=== PATIENT | female | born 1980 | race Caucasian/White ===

== ENCOUNTER 2020-11-05 10:01 | Emergency (ER) | payer OTHER ==
[~2020-11-05 10:01] MED LIST: ENDOCET 5-3251 EACH PO; LAMICTAL200 MG PO; LEVAQUIN500 MG PO; PROBIOTIC OF CHOICE; XANAX0.5 MG PO; ZOFRAN4 MG PO
[2020-11-05] MEDS ORDERED: ETODOLAC500 MG PO (11:10)
[2020-11-05] MEDS ORDERED: NORCO 5-325 TA1 EACH PO (11:10)
== END 2020-11-05 11:20 | disposition home or self-care (01) ==
LOC: FER 10:01
DX: M67.471 Ganglion, right ankle and foot (principal); F17.200 Nicotine dependence, unspecified, uncomplicated; Z88.6 Allergy status to analgesic agent; Z88.8 Allergy status to other drugs, medicaments and biological substances
CPT/HCPCS: 73630

== ENCOUNTER 2021-06-10 15:50 | Emergency (ER) | payer OTHER ==
[~2021-06-10] VITALS: Ht 165.1 cm; Wt 117.9 kg
[~2021-06-10 15:50] MED LIST changes: +ETODOLAC500 MG PO; +NORCO 5-325 TA1 EACH PO
[2021-06-10] MEDS ORDERED: ABILIFY10 MG PO (17:11)
[2021-06-10] MEDS ORDERED: METOPROLOL SUCC25 MG PO (17:12)
[2021-06-10] MEDS ORDERED: OMEPRAZOLE20 M1 PO (17:13)
[2021-06-10 17:44] LABS: BASOPHIL 0.4 % (0-2); EOSINOPHIL 1.7 % (0-5); HGB 13.9 g/dl (12.5-16.0); LYMPHOCYTE 24.1 % (15-48); MCH 31.4 pg (25.0-31.0); MCHC 33.9 g/dL (32.0-36.0); MCV 92.6 fL (78.0-100.0); MONOCYTE 6.1 % (0-12); MPV 11.4 fL (6.0-9.5); NEUTROPHIL 67.3 % (41-80); NRBC 0; PLT 243 K/uL (150-400); RBC 4.43 M/uL (4.20-5.40); RDW 12.2 % (11.5-14.0); WBC 7.2 K/uL (4.0-10.5)
[2021-06-10 17:45] LABS: BILIRUBIN NEGATIVE (NEGATIVE); BLOOD TRACE-INTACT Ery/uL (NEGATIVE); CLARITY CLEAR (CLEAR); COLOR YELLOW (YELLOW); GLUCOSE (U) NORMAL (NORMAL); LEUKOCYTES NEGATIVE Leu/uL (NEGATIVE); NITRITE NEGATIVE (NEGATIVE); PROTEIN NEGATIVE (NEGATIVE); UROBILINOGEN 0.2 mg/dL (0.2-1.0); pH 6.5 (5.0-9.0)
[2021-06-10 17:57] LABS: BACTERIA TRACE; URINARY RBC RARE
[2021-06-10 19:00] LABS: ALBUMIN 3.7 g/dL (3.4-5.0); BILIRUBIN - TOTAL 0.3 mg/dL (0.2-1.0); BUN/CREAT RATIO (CALC) 11.3 RATIO; CREATININE 0.62 mg/dL (0.51-0.95); GLOBULIN (CALCULATION) 3.4 g/dL; POTASSIUM 3.8 mmol/L (3.5-5.1); TOTAL PROTEIN 7.1 g/dL (6.4-8.2)
== END 2021-06-10 21:08 | disposition home or self-care (01) ==
LOC: FER 15:50
PROVIDERS: Emergency Medicine
DX: R10.84 Generalized abdominal pain (principal); R11.0 Nausea; R30.0 Dysuria; F17.210 Nicotine dependence, cigarettes, uncomplicated; Z88.6 Allergy status to analgesic agent; Z88.2 Allergy status to sulfonamides
CPT/HCPCS: 36415; 80053; 81001; 85025; J1885; J2405; J7030; Q9967

== ENCOUNTER 2021-07-16 21:00 | Emergency (ER) | payer OTHER ==
[~2021-07-16 21:00] MED LIST changes: +ABILIFY10 MG PO; +METOPROLOL SUCC25 MG PO; +OMEPRAZOLE20 M1 PO
[2021-07-16 22:34] LABS: BASOPHIL 0.3 % (0-2); EOSINOPHIL 0.4 % (0-5); HCT 39.5 % (37.0-47.0); HGB 13.4 g/dl (12.5-16.0); LYMPHOCYTE 21.5 % (15-48); MCH 32.1 pg (25.0-31.0); MCHC 33.9 g/dL (32.0-36.0); MCV 94.5 fL (78.0-100.0); MONOCYTE 5.8 % (0-12); NEUTROPHIL 71.7 % (41-80); NRBC 0; PLT 230 K/uL (150-400); RBC 4.18 M/uL (4.20-5.40); RDW 12.3 % (11.5-14.0); WBC 7.6 K/uL (4.0-10.5)
[2021-07-16 22:34] LABS: BILIRUBIN NEGATIVE (NEGATIVE); BLOOD NEGATIVE Ery/uL (NEGATIVE); CLARITY CLEAR (CLEAR); COLOR YELLOW (YELLOW); GLUCOSE (U) NORMAL (NORMAL); LEUKOCYTES NEGATIVE Leu/uL (NEGATIVE); NITRITE NEGATIVE (NEGATIVE); PROTEIN NEGATIVE (NEGATIVE); SPECIFIC GRAVITY <=1.005 (1.001-1.030); UROBILINOGEN 0.2 mg/dL (0.2-1.0); pH 6.5 (5.0-9.0)
[2021-07-16 22:49] LABS: CREATININE 0.57 mg/dL (0.51-0.95); POTASSIUM 3.8 mmol/L (3.5-5.1)
[2021-07-16] MEDS ORDERED: FIORICET1 EACH PO (22:57)
== END 2021-07-16 22:55 | disposition home or self-care (01) ==
LOC: FER 21:00
PROVIDERS: Nurse Practitioner Family
DX: G43.909 Migraine, unspecified, not intractable, without status migrainosus (principal); Z88.2 Allergy status to sulfonamides; Z88.6 Allergy status to analgesic agent
CPT/HCPCS: 36415; 70450; 80048; 81003; 85025; J1100; J1200; J1885; J2405; J7030

== ENCOUNTER 2021-09-09 17:07 | Emergency (ER) | payer OTHER ==
[~2021-09-09 17:07] MED LIST changes: +FIORICET1 EACH PO
[2021-09-09] MEDS ORDERED: MEDROL 4MG DOSEP4 MG PO (20:54)
[2021-09-09] MEDS ORDERED: VENTOLIN HFA IN18 GM INH (20:54)
== END 2021-09-09 21:00 | disposition home or self-care (01) ==
LOC: FER 17:07
DX: U07.1 COVID-19 (principal); I10 Essential (primary) hypertension; Z88.1 Allergy status to other antibiotic agents; Z88.6 Allergy status to analgesic agent; Z79.899 Other long term (current) drug therapy
CPT/HCPCS: 99283; U0002

== ENCOUNTER 2021-10-22 18:56 | Emergency (ER) | payer OTHER ==
[~2021-10-22 18:56] MED LIST changes: +MEDROL 4MG DOSEP4 MG PO; +VENTOLIN HFA IN18 GM INH
== END 2021-10-22 22:14 | disposition home or self-care (01) ==
LOC: FER 18:56
DX: M67.471 Ganglion, right ankle and foot (principal); Z88.6 Allergy status to analgesic agent; Z88.8 Allergy status to other drugs, medicaments and biological substances
CPT/HCPCS: 73620

== ENCOUNTER 2021-12-16 22:09 | Emergency (ER) | payer OTHER ==
[2021-12-17 01:32] LABS: BASOPHIL 0.4 % (0-2); EOSINOPHIL 1.6 % (0-5); HCT 41.8 % (37.0-47.0); HGB 14.4 g/dl (12.5-16.0); LYMPHOCYTE 28.3 % (15-48); MCH 31.6 pg (25.0-31.0); MCHC 34.4 g/dL (32.0-36.0); MCV 91.7 fL (78.0-100.0); MONOCYTE 7.5 % (0-12); MPV 10.9 fL (6.0-9.5); NEUTROPHIL 61.8 % (41-80); NRBC 0; PLT 211 K/uL (150-400); RBC 4.56 M/uL (4.20-5.40); RDW 12.2 % (11.5-14.0); WBC 7.6 K/uL (4.0-10.5)
[2021-12-17 01:43] LABS: BUN/CREAT RATIO (CALC) 13.8 RATIO; C-REACTIVE PROTEIN 0.5 mg/dL (<=0.90); CREATININE 0.8 mg/dL (0.51-0.95); POTASSIUM 3.6 mmol/L (3.5-5.1)
[2021-12-17] MEDS ORDERED: MEDROL 4MG DOSEP4 MG PO (03:25)
[2021-12-17] MEDS ORDERED: NORCO 5-325 TA1 EACH PO (03:30)
== END 2021-12-17 03:42 | disposition home or self-care (01) ==
LOC: FER 22:09
PROVIDERS: Internal Medicine
DX: M26.602 Left temporomandibular joint disorder, unspecified (principal); F17.210 Nicotine dependence, cigarettes, uncomplicated; Z88.6 Allergy status to analgesic agent
CPT/HCPCS: 36415; 70490; 80048; 84145; 85025; 86140; J1100